=== PATIENT | male | born 1955 | race Hispanic/Latino ===

== ENCOUNTER 2016-12-28 21:51 | Inpatient (IN) | payer OTHER ==
[~2016-12-28] VITALS: Ht 170.2 cm; Wt 70.2 kg
[~2016-12-28 21:51] MED LIST: ASPI81TA3 PO; INSU3INS3 SUBQ; METF1000 PO; METO25TA6 PO; SIME80TA53 PO
[2016-12-28 22:01] VITALS: BP 142/89; PULSE 82; RESP 28; O2SAT 92
--- NOTE | 2016-12-28 22:09 | ED.REPORT ---
HPI-Dyspnea / Wheezing Date of Service Dec 28, 2016 ED Provider: Dr. Graves The pt is a 61 y/o male w/ a hx of IDDM, CHF, COPD, and mitral stenosis presenting to the ED c/o SOB onset 10 days ago, worsening today. He c/o associated belching, wet cough. He is also experiencing itching sensation in his throat which causes him to cough and have difficulty breathing. Records show recurrent admissions for CHF and mitral stenosis. His daughter states that he has been seen for similar symptoms exactly 1 year ago at [facility] at which time she reports a procedure which sounds similar to a cardiac catheterization but she cannot specify further. by history has had mitral stenosis and prior CHF admits. He denies orthopnea, chest pain, abdominal pain. He has a history of CHF but denies taking any diuretics. There has been no new medications. PCP: Dr. Hebert The pt and his daughter are poor historians, and non-maori speakers. Nursing Notes Chief Complaint: Respiratory Distress Nursing Notes Reviewed: Yes Allergies: Coded Allergies: No Known Allergies (Unverified , 12/28/16) Scheduled Aspirin Chew (Aspirin Chew) 81 Mg Tablet 81 MG PO DAILY Insuln Asp Prt/Insulin Aspart (NovoLOG 70/30 U100 Insulin Flexpen) 100 Unit/Ml Inj 8 UNIT SUBQ BIDAC Metformin (Glucophage) 1,000 Mg Tablet 1,000 MG PO BID Metoprolol Tartrate (Metoprolol Tartrate) 25 Mg Tablet 12.5 MG PO BID Simethicone (Gas-X) 80 Mg Tablet 80 MG PO DAILY General Time Seen by MD: 22:09 Chief Complaint Shortness of breath Hx Obtained From: Patient, Daughter, Social Worker Psychiatric Arrived By: Walk-in Sudden in Onset?: No Onset Occurred: More than a week ago... (10 days) Symptom Duration: Since onset Location: : None Severity: Current: No pain currently Severity: Maximum: No pain Recent Healthcare: No recent doctor visit Similar Sx Previous: Yes Past Medical History Past Medical History Mitral valve stenosis Reports: COPD, Congestive heart failure, Diabetes mellitus Reports: Depression Past Surgical History None Smoking History Former Smoker Social History Pt recently moved to the area from [place]. He lives with his son. 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 Alcohol Use: Denies alcohol use Drug Use: Denies drug use Other Social History: Good social support, Local resident Ambulatory Status Independent Review of Systems Review of Systems Note: Belching, itching in throat Respiratory: Reports: Prod cough, clear, Shortness of breath Cardiovascular: Denies: Chest pain, Orthopnea Complete sys rev & neg: except as marked. GI: Denies: Abdominal pain, Nausea, Vomiting Physical Exam Initial Vital Signs Vital Signs (First) Date Time Temp Pulse Resp B/P Pulse Ox O2 Delivery O2 Flow Rate FiO2 12/28/16 22:01 36.3 82 28 142/89 92 Room Air Initial VS: Reviewed, Vital signs abnormal Head / Eyes: Atraumatic, Normocephalic, PERRL Extremities: Vascular intact, Neuro intact, No swelling, No tenderness Skin: Warm, Dry, No cyanosis Neurologic: Alert, Oriented, Nonfocal Psychiatric: Mood/affect normal, Behavior normal, Normal thought content General/Constitutional: Awake, Alert, Cooperative, Not toxic appearing Neck: Atraumatic, Supple, No meningismus, Full range of motion, No swelling, Non-tender, No masses JVD present Respiratory / Chest: Atraumatic Wheezes and rales throughout Cardiovascular: Heart rate NL, Regular rhythm, Heart sounds NL, No gallop, No murmurs, No rubs, Peripheral circulation NL ENT: Airway patent, Mucous membranes moist Slight edema of tongue Mild edema of larynx Abdomen: Atraumatic, Soft, Non-tender, No guarding, No rebound Hepatojugular reflux present Interpretation & Diagnostics Lab Results Interpretation Result Diagram: 12/28/167 12/28/16 2217 Test 12/28/16 22:17 12/28/16 23:56 White Blood Count 6.5th/mm3 (3.8-10.1) Red Blood Count 4.01mil/mm3 (4.40-5.80) Hemoglobin 11.6g/dL (13.8-17.2) Hematocrit 35.6% (41.0-50.0) Mean Corpuscular Volume 88.8fL (81-100) Mean Corpuscular Hemoglobin 28.9pg (27.0-35.0) Mean Corpuscular Hemoglobin Concent 32.6% (32.0-37.0) Red Cell Distribution Width 14.1% (12.3-15.4) Platelet Count 287bil/L (150-400) Neutrophils (%) (Auto) 52.2% (40-74) Lymphocytes (%) (Auto) 35.2% (14-46) Monocytes (%) (Auto) 7.0% (4-12) Eosinophils (%) (Auto) 4.3% (0-5) Basophils (%) (Auto) 1.1% (0-3) Sodium Level 128mEq/L (134-144) Potassium Level 3.9mEq/L (3.5-5.2) Chloride Level 95mEq/L (97-108) Carbon Dioxide Level 25mmol/L (18-29) Blood Urea Nitrogen 18mg/dL (8-27) Creatinine 0.66mg/dL (0.76-1.27) Estimat Glomerular Filtration Rate 130mL/min (>59) Glucose Level 309mg/dL (60-99) Calcium Level 8.9mg/dL (8.5-10.1) Magnesium Level 1.9mg/dL (1.6-2.6) Total Bilirubin 0.4mg/dL (0.0-1.2) Aspartate Amino Transf (AST/SGOT) 14U/L (0-50) Alanine Aminotransferase (ALT/SGPT) 11U/L (0-44) Alkaline Phosphatase 95U/L (25-160) Troponin T 0.010ug/L (0.0-0.011) Pro-B-Type Natriuretic Peptide 455.9pg/mL (0-210) Total Protein 7.1g/dL (6.4-8.4) Albumin 4.2g/dL (3.4-5.0) Procalcitonin 0.03ng/mL (0.00-0.08) Hold Sánchez Top Tube Received (Received) Urine Color Yellow (YELLOW) Urine Appearance Clear (CLEAR,HAZY) Urine pH 6.0 (5.0-8.0) Urine Specific [place] 1.015 (1.003-1.035) Urine Protein Negativemg/dL (NEG,TRACE) Urine Glucose (UA) >1000mg/dL (NEGATIVE) Urine Ketones Negativemg/dL (NEGATIVE) Urine Occult Blood Negative (NEGATIVE) Urine Nitrite Negative (NEGATIVE) Urine Bilirubin Negative (NEGATIVE) Urine Urobilinogen Normalmg/dL (NORMAL) Urine Leukocyte Esterase Negative (NEGATIVE) Urine RBC 0-2/hpf (0-2) Urine WBC 0-5/hpf (0-5) Urine Epithelial Cells Occasional/hpf (NONE-MOD) Urine Crystals None seen (NONE SEEN) Urine Bacteria None/hpf (NONE-FEW) Urine Hyaline Casts None/lpf (NONE) Urine Granular Casts None seen (NONE SEEN) Urine Waxy Casts None seen (NONE SEEN) Urine Red Blood Cell Casts None seen (NONE SEEN) Urine White Blood Cell Casts None seen (NONE SEEN) Urine Mucus None seen (None Seen) Urine Trichomonas None seen (NONE SEEN) Urine Yeast None (NONE SEEN) Urinalysis Comment None Urine Culture Reflexed Not indicated ECG Interpretation ECG Interpretation: Sinus rhythm, Rate 76 Time: 22:30 Interpreted by: ED physician Normal ECG Interpretation: No acute ischemic changes, No change from prior ECGs X-Ray Chest Interpretation Chest Xray Interpretation: Cardiomegaly CHF View: Portable, 1 view Interpretation / Wet Read by: Interpret - Radiologist Re-Eval/Medical Decision Med Decision/Clinical Course 61 year old male with acute exacerbation of CHF. Not clear what precipitated, concerned for ischemic disease. Has had an invasive procedure 1 year ago, not clear if this was a cath with coronary intervention or some type of valvular procedure. Note he was in considerable distress or arrival and sats were low. Plan to admit. Code status discussed in presence of family- full code Re-Evaluation/Progress : Time of Eval: 23:04 Re-Evaluation/Progress Note: Pt rechecked. Code status discussed: Full code. Informed pt of need to admit. Pt understands and agrees with plan for treatment. All questions addressed. Consultation : Referral / Consult Name: Jamarcus Lynch MD Consulted With: Hospitalist Ward Aide: Accepts admit Counseled Regarding: Diagnosis, Lab results, Need for admission Discharge & Departure Impression: Primary Impression: Acute exacerbation of CHF (congestive heart failure) Congestive heart failure type: unspecified congestive heart failure type Qualified Code: I50.9 - Heart failure, unspecified Disposition: ADMITTED TO HOSPITAL Discharge Condition All VS Reviewed: Yes Condition: Stable Referrals: Tanika Hebert MD (PCP) Scribe Attestation Portions of this note were transcribed by Lai Garcia and Eleno Castillo. I, Dr. Graves, personally performed the history, physical exam and medical decision- making; I reviewed and confirmed the accuracy of the information in the transcribed note. Signed by Lai Garcia and Anais Green, 12/28/16 - 1030 copies to: Tanika Hebert MD, Donald L MD Dec 28, 2016 22:09 LAI GARCIA Dec 28, 2016 22:14 Eleno Castillo Dec 28, 2016 22:21
[2016-12-28 22:53] LABS: BASOPHILS % (AUTO) 1.1 % (0-3); EOSINOPHILS % (AUTO) 4.3 % (0-5); Mean Corpuscular Hemoglobin 28.9 pg (27.0-35.0); Mean Corpuscular Volume 88.8 fL (81-100); NEUTROPHILS % (AUTO) 52.2 % (40-74); Platelet Count 287 bil/L (150-400)
[2016-12-28] MEDS ORDERED: Furosemide 10 mg/mL 4 mL Inj IVPUSH ONE (23:00)
[2016-12-28 23:23] VITALS: BP 123/83; PULSE 71; RESP 24; O2SAT 98
[2016-12-28 23:37] LABS: Magnesium 1.9 mg/dL (1.6-2.6); TROPONIN T 0.01 ug/L (0.0-0.011)
[2016-12-29] VITALS (9 sets, daily range): BP systolic 100–116; BP diastolic 63–72; PULSE 52–80; RESP 16–20; O2SAT 91–99
[2016-12-29 00:05] LABS: APPEARANCE,URINE CLEAR (CLEAR,HAZY); COLOR,URINE YELLOW (YELLOW); OCCULT BLOOD,URINE NEGATIVE (NEGATIVE); UROBILINOGEN,URINE NORMAL (NORMAL)
[2016-12-29] MEDS ORDERED: Ondansetron 2 mg/mL 2 mL Inj IVPUSH PRN ×2 (00:25→01:25)
[2016-12-29] MEDS ORDERED: Alum-Mag Hydrox-Simeth 30 mL Suspension PO PRN ×2 (00:25→01:25)
--- NOTE | 2016-12-29 01:22 | NUR ---
Admit Note Pt arrived around 0100. Alert and oriented. Able to walk himself to bed. Using parts interpreter on stick for admit process. Pt feels well and not in pain.
[2016-12-29] MEDS ORDERED: Senna-Docusate 8.6-50 mg Tablet PO PRN (01:25)
[2016-12-29] MEDS ORDERED: Polyethylene Glycol (PEG) 17 Gm Powder PO PRN (01:25)
--- NOTE | 2016-12-29 01:45 | PCM.HPMED ---
Subjective Date of Service Dec 29, 2016 Primary Provider: Admitting Physician: Jamarcus Lynch MD Primary Care Physician: Tanika Hebert MD Attending Physician: Jamarcus Lynch MD Admit Status: From the Emergency Department Chief Complaint: Shortness of breath dyspnea, respiratory failure, eructations, productive phlegm , History of Present Illness: This is a pleasant 61 y/o M with Hx of CHF and history of previous hospitalization for CHF exacerbation, mitral stenosis, and Type 2 Diabetes Mellitus who presented [facility] ED and acute hypoxic respiratory failure requiring 4 L nasal cannula to maintain oxygen saturation initially. Patient was tachypneic with a respiratory rate of 28. Patient states that 10 days ago he began to experience what he describes as a gas sensation moving out from his abdomen into his chest and throat when he lays down. He describes these as eructations. He also describes a productive cough of brown sputum. He states when the gas moves from his abdomen into his throat causes her to itch and makes him cough. This is associated with metallic taste in his mouth, shortness of breath requiring him to lie on his side to sleep, paroxysmal nocturnal dyspnea, but denies orthopnea, fevers, vomiting, nausea, chest pain, chest pressure, chills, sweats, recent travel, sick contacts. Patient states that the last time he was admitted was for his heart. He denies that this episode is similar to his previous episode when he was here for CHF. He says this feels different. Patient describes lightheadedness when rapidly changing positions from lying to standing. He reports that one year ago he had a cardiac procedure done by Dr. Zavala at [facility] VS his daughters hx of being seen at [facility]. He says he had a wire was fed into his groin up into his chest secondary to some sort of obstruction, possible mitral valve pathology. Nursing reports that the [facility] has no record of patient and we are still awaiting information from [facility] regarding patients procedure. In the ED patient received medications: Lasix 40 mg IV once. At time of this interview patient appeared to be resting in bed comfortably in no respiratory distress on no oxygen and speaking in full sentences. EKG showed sinus rhythm with a rate of 76, right axis deviation, right bundle branch block, no changes from previous EKG. CXR showed: Normal cardiac silhouette, increased pulmonary vascular prominence bilaterally with cephalization. Appears consistent with CHF with what appears to be moderate diffuse interstitial disease. Vital signs: Temperature 36.3, pulse 82, respiratory rate 28, blood pressure 142 /89, pulse ox 92% on 4 L NC Repeat vitals: Temperature 36.6, pulse 66, respiratory rate 18, blood pressure 114/67, 83, 97% on 2 L NC Hemogram showed WBCs 6.5, 52.2% PMNs, hemoglobin 11.6, hematocrit 35.6, MCV 88.8 , MCH 28.9, MCHC 32.6, platelets 287. Chemistry panel, sodium 128, chloride 95, potassium 3.9, CO2 25, BUN 18, creatinine 0.66, glucose 309, troponin T 0.010, proBNP 455.9 Pro calcitonin 0.03 UA showed: Urine color yellow clear, pH 6.0, specific gravity 1.015, greater than 1000 glucose, negative occult blood, otherwise negative UA Review of Systems: A comprehensive review of systems was conducted and was negative except as mentioned in history of present illness. Allergies Coded Allergies: No Known Allergies (Unverified , 12/28/16) Home Medications Aspirin Chew (Aspirin Chew) 81 Mg Tablet 81 MG PO DAILY Insuln Asp Prt/Insulin Aspart (NovoLOG 70/30 U100 Insulin Flexpen) 100 Unit/Ml Inj 8 UNIT SUBQ BIDAC Metformin (Glucophage) 1,000 Mg Tablet 1,000 MG PO BID Metoprolol Tartrate (Metoprolol Tartrate) 25 Mg Tablet 12.5 MG PO BID Simethicone (Gas-X) 80 Mg Tablet 80 MG PO DAILY PMH Mitral valve stenosis COPD Congestive heart failure Diabetes mellitus Depression Surgical History History of a cardiac procedure possible catheter procedure 1 year ago at [facility] versus the [facility] by Dr. Zavala Family History Mother with history of liver cancer Social History Hx Alcohol Use: Yes (once per month) Hx Substance Use: No Hx Tobacco Use: Yes (previous every day smoker) Smoking Status: Former Smoker Living Arrangement: with Family (patient lives at home with his daughter Robert , his and his grandchildren) Exam Vital Signs Vital Sign - Last Date Time Temp Pulse Resp B/P Pulse Ox O2 Delivery O2 Flow Rate FiO2 12/29/16 01:19 36.6 66 18 114/67 97 Nasal Cannula 2.00 Exam General: Alert and oriented 3, appearing in no acute distress, resting comfortably in bed, Hungarian-speaking male speaking in full sentences. Jovial. Not appearing ill. HEENT: NC/AT, eyes, PERRLA, EOMI, neck, soft supple, no adenopathy, no JVD, no masses, no thyromegaly, throat mucous membranes pink and moist, no erythema, no exudates, no tonsillar swelling, no uvular deviation. Lungs: CTAB all lim from mild crackles in the bases bilaterally, no use of accessory muscles of respiration, good air movement, good respiratory effort. Heart: Regular rate and rhythm, did not detect a murmur although patient has echo that shows mitral regurg, no rub, no click, no distant heart sounds, Abdomen: Soft, nontender, slightly protuberant and tympanic on percussion, bowel sounds hyperactive, no rebound, no guarding, Genitourinary: No CVA tenderness, no suprapubic tenderness, no Fox catheter, Extremities: Pulses equal and symmetric upper/lower extremity including radial and dorsalis pedis, no edema, Neurologic: Patient is grossly neurologically intact, taking in full sentences, no focal neurological signs. Skin: Skin appears warm, and dry with skin tenting on the dorsal hands, patient does not appear to be wet or edematous Psychiatric: Mood is cheerful and mood and affect are congruent and appropriate. Lab and Diagnostics Result Diagram: 12/28/16221612/28/162216 Assessment & Plan This is a 61-year-old male with history type II diabetes, CHF, who presented to the ED with complaint of shortness of breath onset 10 days ago, belching, and wet cough productive dark brown sputum. Patient was found to be hyponatremic 128 and hyperglycemic at 308 Patient was admitted for acute exacerbation cessation of COPD and acute hypoxic respiratory failure. # Acute hypoxemic respiratory failure, secondary to acute exacerbation of CHF present on admission, active - Patient describes productive cough of brown colored sputum. For 10 days. - Likely secondary to CHF however differential diagnosis includes acute pneumonia, upper respiratory infection, - Vital signs: Temperature 36.3, pulse 82, respiratory rate 28, blood pressure 142/89, pulse ox 92% on 4 L NC - Patient currently is satting 97% on 2 L. - BNP 455.9 - Procalcitonin 0.03 - Continue supplemental oxygen as needed and slowly titrate off. - CXR: CXR showed: Normal cardiac silhouette, increased pulmonary vascular prominence bilaterally with cephalization. Appears consistent with CHF with what appears to be moderate diffuse interstitial disease. - Lasix 40 mg IV given in ED. - We will Will defer to morning hospitalist to continue IV Lasix, - Telemetry ordered - Previous echo dated 09/04/2015 showed normal left ventricular thickness, size , wall motion and function, LVEF 65-70%. Normal right ventricular size and function. 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 Severe left atrial enlargement with pulmonary hypertension. - Will order echo complete # Exacerbation of CHF, present on admission, active - Exam, lungs were clear bilaterally with only mild crackles in the lung bases. No distant heart sounds no murmurs, patient did not appear in respiratory distress. Patient did not appear wet. - BNP elevated as above - Patient was admitted to his [facility] in the past for CHF exacerbation, however patient states that this time seems different in that he has a sensation that gas is moving up from his belly into his throat when he lays down. Associated with metallic taste - She received IV Lasix 40 milligrams in the ED - We will Will defer to morning hospitalist to continue IV Lasix # Anemia, normochromic normocytic, present on admission, active - hemoglobin 11.6, hematocrit 35.6, MCV 88.8, MCH 28.9, MCHC 32.6, platelets 287. # Hypochloremic hyponatremia, present on admission, active - Sodium 128, chloride 95 - Likely multifactorial and secondary to acute on chronic hyperglycemia, volume overload secondary to CHF - We will fluid restrict to 1500 mL per day. - We will correct hyperglycemia - We will monitor with further BMPs # Hyperglycemia in a known type 2 diabetic, present on admission, active - BG 309 - Start low dose correction scale insulin - Hold home medication metformin - We will hold patient's insulin at NovoLog 70/30 U100 - Start basal insulin Lantus 5 units daily at bedtime # Glucosuria, present on admission, active - Patient was spilling greater than 1000 glucose on UA # Acid reflux and bloating, acute, present on admission, active - Consistent with patient's history of eructations and metallic taste in his mouth as well as gas and bloating for the past 10 days. When he lays down symptoms worsen. - Ranitidine - Simethicone Disposition: Admitted to in patient service with expected length of stay greater than 2 days, secondary to severity of presenting symptoms, treatment plan, complexity of clinical work up, and risk of adverse events. CODE STATUS: Full code PCP: Tanika Hebert DVT PE prophylaxis: SubQ heparin Q8H Contact: Robert Alvarez [phone] Patient lives with his daughter and grandchildren at home Pain Evaluation: Adequate Pain Control VTE Prophylaxis: Sub-Q Heparin (Unfractionated) Resuscitation Status: CPR: Attempt Resuscitation Attending Statement The patient was seen and examined together with Dr. Caldwell on 12/29 and I agree with the history, exam and plan as outlined in the note above. Venu Caldwell DO Dec 29, 2016 01:45 Jamarcus Lynch MD Dec 29, 2016 04:15
[2016-12-29 02:20] LABS: BASOPHILS % (AUTO) 0.4 % (0-3); EOSINOPHILS % (AUTO) 3.4 % (0-5); MONOCYTES % (AUTO) 6.5 % (4-12); Mean Corpuscular Hemoglobin 28.9 pg (27.0-35.0); Mean Corpuscular Volume 88.9 fL (81-100); NEUTROPHILS % (AUTO) 73.8 % (40-74); Platelet Count 270 bil/L (150-400)
[2016-12-29] MEDS ORDERED: Glucose 40% Oral Gel 15 Gm Tube PO PRN (04:00)
--- NOTE | 2016-12-29 06:35 | DRSVH ---
PROCEDURE: X-RAY CHEST ONE VIEW, PORTABLE ([id number]) INDICATIONS: dyspnea TECHNIQUE: One view of the chest was acquired. COMPARISON: [facility], CR, XR CHEST 1VW (PORTABLE), 11/06/2015, 19:49. FINDINGS: Surgical changes and devices: None. Lungs and pleura: There is mild interstitial prominence. No focal airspace opacities. Mediastinum: Mediastinal contours appear normal. Heart size is mildly enlarged. Bones and chest wall: No suspicious bony lesions. Overlying soft tissues appear unremarkable. IMPRESSION: Mild cardiomegaly and interstitial prominence suggesting fluid overload. Dictated by: Kinga Jean M.D. on 12/29/2016 at 6:33 Approved by: Kinga Jean M.D. on 12/29/2016 at 6:33
[2016-12-29] MEDS: Insulin LISPRO 300 Unit/3 mL Inj SUBQ SCH ×4 (08:00→21:24)
[2016-12-29] MEDS: Sodium Chloride LOK Flush 10 mL Syringe IVFLUSH SCH ×2 (08:47→17:25)
[2016-12-29] MEDS: Ranitidine 15 mg/mL 473 mL Syrup PO SCH ×3 (08:47→21:23)
[2016-12-29] MEDS: Heparin 5,000 Unit/mL Inj SUBQ SCH ×2 (08:48→21:25)
--- NOTE | 2016-12-29 10:30 | NUR ---
Social Work: Screening Data: Pt is a 61 y/o male admitted for acute exacerbation of CHF. Pt's PCP is Dr Hebert, pt's insurance is [employer]. EMR reviewed. Readmit score not listed. Pt is Italian speaking. [employer] will continue to follow for possible HH need. Assessment: Pt who is independent at baseline. Plan: Pt will d/c home via POV when medically stable, [employer] will continue to follow for possible HH need. YULIANA Ryan
[2016-12-29] MEDS: Furosemide 10 mg/mL 4 mL Inj IVPUSH SCH (11:00)
[2016-12-29] MEDS: MeTOProlol XL 25 mg ER24 Tablet PO SCH ×2 (11:29→20:30)
--- NOTE | 2016-12-29 18:18 | DRSVH ---
[facility] [address] [place] [address] Echocardiogram Report Name: KEHINDE ANDREWS Date: 12/29/2016 Height: 67 in Hospital Exam Location: [facility] Weight: 161 lb Gender: Male BSA: 1.8 m2 : 1955 Age: 61 yrs BP: 110/68 mmHg Reason For Study: HEART FAILURE Ordering Physician: Performed By: Minna Florentino Referring Physician: DR. Kaya ELLISON Interpretation Summary The left ventricle is normal in size, wall thickness, and systolic function without any focal wall motion abnormalities with the ejection fraction is estimated to be 65-70%. Diastolic function could not be accurately assessed due to confounding valvular disease. There has been no significant change since the previous study. The right ventricle is normal in size and function and appears unchanged compared to the previous study. There is severe pulmonary hypertension with the right ventricular systolic pressure now estimated at 81 mmHg assuming a right atrial pressure of 3 mm Hg and is higher compared to the previous study. Right atrial size is normal while the left atrium is severely dilated but there has been no significant change since the previous study. There is moderate mitral annular calcification and the mitral valve leaflets appear moderately thickened and severely calcified with an appearance consistent with rheumatic mitral stenosis. The mean mitral valve pressure gradient is 16 mmHg, up from 14 mmHg on the previous study with a mitral valve area now estimated at 0.7-0.8 cm2 compared to 1.1 cm2 on the previous study, consistent with severe mitral stenosis, likely slightly progressive compared to the previous study. There is at least moderate mitral regurgitation that appears more prominent compared to the previous study. The aortic valve is slightly calcified but opens well with moderate aortic regurgitation that is unchanged compared to the previous study. There is moderate tricuspid regurgitation that is more prominent compared to the previous study. The patient was in normal sinus rhythm between 55-70 bpm during the study. Procedure: A two-dimensional transthoracic echocardiogram with color flow and Doppler was performed. The study quality was technically adequate. Comparison is made with the echocardiogram of 08-22-2015. The patient was in normal sinus rhythm during the exam. The heart rate ranged between 55-70 bpm during the study. Left Ventricle: The left ventricle is normal in size, wall thickness, and systolic function without any focal wall motion abnormalities. The ejection fraction is estimated to be 65-70%. Spectral Doppler of the mitral valve shows a normal E/A wave ratio. Diastolic function could not be accurately assessed due to confounding valvular disease. There has been no significant change since the previous study. Right Ventricle: The right ventricle is normal in size and function. This is unchanged compared to the previous study. Atria: The left atrium is severely dilated. Right atrial size is normal. There has been no significant change since the previous study. There is no Doppler evidence for an atrial septal defect. Mitral Valve: There is moderate mitral annular calcification. The mitral valve leaflets are severely calcified. Rheumatic mitral stenosis. The mean mitral valve pressure gradient is 16 mmHg, up from 14 mmHg on the previous study with a mitral valve area now estimated at 0.7-0.8 cm2 compared to 1.1 cm2 on the previous study. There is severe mitral stenosis. This is likely slightly progressive compared to the previous study. There is moderate mitral regurgitation. This is more prominent compared to the previous study. Aortic Valve: The aortic valve is trileaflet. The aortic valve is slightly calcified. The aortic valve opens well. There is no aortic valve stenosis. There is moderate aortic regurgitation. This is unchanged compared to the previous study. Tricuspid Valve: The tricuspid valve leaflets are thin and pliable. There is moderate tricuspid regurgitation. This is more prominent compared to the previous study. There is severe pulmonary hypertension. The right ventricular systolic pressure is estimated at 81 mmHg assuming a right atrial pressure of 3 mm Hg. This is higher compared to the previous study. Pulmonic Valve: The pulmonic valve leaflets are thin and pliable; valve motion is normal. There is a trace or physiologic amount of pulmonic regurgitation. Great Vessels: The aortic root is normal size. The dimensions of the ascending aorta are normal. The pulmonary artery is normal size. The IVC is of normal diameter and collapses greater than 50% with a sniff. This suggests a low right atrial pressure of 3 mm Hg. Pericardium/ Pleura There is no pericardial effusion. There is no pleural effusion. MMode/2D Measurements & Calculations LVIDd: 4.8 cm LA dimension: 5.3 cm RA long axis LVOT diam: 2.2 cm LVIDs: 2.9 cm AoV Opening FS: 39.8 % LA A2 area: 36.4 cm RA area EPSS: 0.78 cm LA A4 area: 32.3 cm Ao root diam IVSd: 1.1 cm LA length (vol) : 18.5 cm LVPWd: 1.0 cm RA vol asc Aorta Diam LA vol: 154.4 ml : 50.4 ml LA vol index RA Ao Arch Diam (Prox : 27.3 mm/ Trans): 2.7 cm RVDd major IVC diam: 2.1 cm : 6.2 cm LV lares. diameter/BSA LV sys. diameter/BSA RVD2 (mid) (cm/m^2): 2.6 (cm/m^2): 1.6 : 3.5 cm Doppler Measurements & Calculations Ao V2 max: 172.0 cm/secMV E max rhett MV E/A: 1.4 TR max rhett Ao max P.8 mmHg : 283.9 cm/sec Med Peak E' Rhett : 442.1 cm/sec Ao mean P.7 mmHg MV A max rhett TR max PG LVOT Max Rhett : 199.1 cm/sec E/E' med: 60.7 : 78.2 mmHg : 114.3 cm/sec MVA(VTI): 0.72 cm2Lat Peak E' Rhett PA V2 max CONNIE(I,D): 2.8 cm : 91.9 cm/sec sev ratio: 0.75 E/E' lat: 57.8 PA mean PG AI P1/2t: 466.1 msec E/e' average AI dec slope PA Accel Time Pulm A Revs Dur : 0.08 sec : 278.0 cm/s2c MV V2 mean Ao V2 mean LV V1 max PG PA V2 mean : 194.3 cm/sec : 112.8 cm/sec : 64.7 cm/sec MV mean P.2 mmHg Ao V2 VTI: 38.2 cmLV V1 VTI MV V2 VTI: 147.6 cm CONNIE(V,D): 2.5 cm2 : 28.7 cm MV dec time: 0.85 sec CONNIE indexed to BSA (cm^2/m^2): 1.5 Reading Physician:06:17 PM
[2016-12-29] MEDS ORDERED: Insulin GLARgine 100 Unit/mL Syringe SUBQ SCH (21:00)
--- NOTE | 2016-12-29 22:19 | PCM.PNMED ---
Subjective Date of Service Dec 29, 2016 Subjective Patient states that he has little appetite. He has some left breathing difficulties today and is overall feeling better. Exam Vital Signs Vital Sign - Last Date Time Temp Pulse Resp B/P Pulse Ox O2 Delivery O2 Flow Rate FiO2 12/29/16 20:41 36.6 80 18 100/64 99 Room Air 12/29/16 09:37 2.00 Intake and Output 12/28/16 12/28/16 12/29/16 Cumulative From/Thru 15:00 23:00 07:00 12/28/16 22:01 - 12/29/16 06:39 Intake Total 200 ml 200 ml Output Total 900 ml 900 ml Balance -700 ml -700 ml Intake Oral 200 ml 200 ml Output Urine Total 900 ml 900 ml # Bowel Movements 0 0 Exam General: Patient is lying supine in bed in no apparent distress. HEENT: Head is atraumatic and normocephalic. Eyes: Pupils are equally round and reactive to light and accommodation. Extraocular muscles are intact. Sclera are white, anicteric. Subconjunctival mucosa is pink. Ears and nose are unremarkable. Oropharynx: There is no mucosal lesions, there is no thrush, there is no pharyngitis. Neck: Is supple, there are no nodes, or masses or tenderness. Chest: Is to admit him for some bibasilar crackles. There are no rhonchi wheezes or rubs at this time. Heart: Rate, rhythm is regular. There is no new murmur, rub or gallop. Abdomen: Good bowel sounds are present. Abdomen is soft, nontender, no organomegaly or masses were appreciated. Extremities: Are symmetrical and well perfused. There is no edema, there is no cellulitis, no rash. Neurologic: There are no focal neurological deficits. Cranial nerves II through XII are intact. There are no sensory or motor deficits. Psychiatric: Patients mood is calm and he shows no sign of agitation. Genital: Deferred Rectal: Deferred Lab and Diagnostics Result Diagram: 12/29/16 0200 12/29/16 0200 X-Rays, CTs and MRIs PROCEDURE: X-RAY CHEST ONE VIEW, PORTABLE ([id number]) INDICATIONS: dyspnea TECHNIQUE: One view of the chest was acquired. COMPARISON: [facility], CR, XR CHEST 1VW (PORTABLE), 11/06/2015, 19: 49. FINDINGS: Surgical changes and devices: None. Lungs and pleura: There is mild interstitial prominence. No focal airspace opacities. Mediastinum: Mediastinal contours appear normal. Heart size is mildly enlarged. Bones and chest wall: No suspicious bony lesions. Overlying soft tissues appear unremarkable. IMPRESSION: Mild cardiomegaly and interstitial prominence suggesting fluid overload. Dictated by: Kinga Jean M.D. on 12/29/2016 at 6:33 Approved by: Kinga Jean M.D. on 12/29/2016 at 6:33 Cardiac Echo Impressions Echocardiogram Report Name: KEHINDE ANDREWS AStudtracy Date: 12/29/2016 Height: 67 in Hospital Exam Location: [facility] Weight: 161 lb Gender: Male BSA: 1.8 m2 : 1955 Age: 61 yrs BP: 110/68 mmHg Reason For Study: HEART FAILURE Ordering Physician: Performed By: Minna Florentino Referring Physician: DR. Kaya HEBERT Interpretation Summary The left ventricle is normal in size, wall thickness, and systolic function without any focal wall motion abnormalities with the ejection fraction is estimated to be 65-70%. Diastolic function could not be accurately assessed due to confounding valvular disease. There has been no significant change since the previous study. The right ventricle is normal in size and function and appears unchanged compared to the previous study. There is severe pulmonary hypertension with the right ventricular systolic pressure now estimated at 81 mmHg assuming a right atrial pressure of 3 mm Hg and is higher compared to the previous study. Right atrial size is normal while the left atrium is severely dilated but there has been no significant change since the previous study. There is moderate mitral annular calcification and the mitral valve leaflets appear moderately thickened and severely calcified with an appearance consistent with rheumatic mitral stenosis. The mean mitral valve pressure gradient is 16 mmHg, up from 14 mmHg on the previous study with a mitral valve area now estimated at 0.7-0.8 cm2 compared to 1.1 cm2 on the previous study, consistent with severe mitral stenosis, likely slightly progressive compared to the previous study. There is at least moderate mitral regurgitation that appears more prominent compared to the previous study. The aortic valve is slightly calcified but opens well with moderate aortic regurgitation that is unchanged compared to the previous study. There is moderate tricuspid regurgitation that is more prominent compared to the previous study. The patient was in normal sinus rhythm between 55-70 bpm during the study. Assessment & Plan This is a 61-year-old male with history type II diabetes, CHF, who presented to the ED with complaint of shortness of breath onset 10 days ago, belching, and wet cough productive dark brown sputum. Patient was found to be hyponatremic 128 and hyperglycemic at 308 Patient was admitted for acute exacerbation cessation of COPD and acute hypoxic respiratory failure. # Acute hypoxemic respiratory failure, secondary to acute exacerbation of CHF present on admission, active - Patient describes productive cough of brown colored sputum. For 10 days. - Likely secondary to CHF however differential diagnosis includes acute pneumonia, upper respiratory infection, - Continue supplemental oxygen as needed and slowly titrate off. - CXR: CXR showed: Normal cardiac silhouette, increased pulmonary vascular prominence bilaterally with cephalization. Appears consistent with CHF with what appears to be moderate diffuse interstitial disease. - Lasix 40 mg IV given in ED. - We will attenuate IV Lasix daily - Telemetry ordered - Previous echo dated 09/04/2015 showed normal left ventricular thickness, size , wall motion and function, LVEF 65-70%. Normal right ventricular size and function. 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 Severe left atrial enlargement with pulmonary hypertension. - Repeat echocardiogram shows some progression of mitral valve disease. We will need to discuss with cardiology. # Exacerbation of CHF, present on admission, active - Exam, lungs were clear bilaterally with only mild crackles in the lung bases. No distant heart sounds no murmurs, patient did not appear in respiratory distress. Patient did not appear wet. - BNP elevated as above - Patient was admitted to his [facility] in the past for CHF exacerbation, however patient states that this time seems different in that he has a sensation that gas is moving up from his belly into his throat when he lays down. Associated with metallic taste - She received IV Lasix 40 milligrams in the ED - We will Will defer to morning hospitalist to continue IV Lasix # Anemia, normochromic normocytic, present on admission, active - We will continue to monitor # Hypochloremic hyponatremia, present on admission, active with no improvement - Sodium 128, chloride 95 - Likely multifactorial and secondary to acute on chronic hyperglycemia, volume overload secondary to CHF - We will fluid restrict to 1500 mL per day. - We will correct hyperglycemia - We will monitor with further BMPs # Hyperglycemia in a known type 2 diabetic, present on admission, active - BG 309 - Start low dose correction scale insulin - Hold home medication metformin - We will hold patient's insulin at NovoLog 70/30 U100 - Start basal insulin Lantus 5 units daily at bedtime # Glucosuria, present on admission, active - Patient was spilling greater than 1000 glucose on UA # Acid reflux and bloating, acute, present on admission, active - Consistent with patient's history of eructations and metallic taste in his mouth as well as gas and bloating for the past 10 days. When he lays down symptoms worsen. - Ranitidine - Simethicone Disposition: Admitted to in patient service with expected length of stay greater than 2 days, secondary to severity of presenting symptoms, treatment plan, complexity of clinical work up, and risk of adverse events. CODE STATUS: Full code PCP: Tanika Hebert DVT PE prophylaxis: SubQ heparin Q8H Contact: Robert Alvarez [phone] Patient lives with his daughter and grandchildren at home Pain Evaluation: Adequate Pain Control GI Prophylaxis: H2 carmelita VTE Prophylaxis: Sub-Q Heparin (Unfractionated) Resuscitation Status: CPR: Attempt Resuscitation [place] MD Dec 29, 2016 22:19 VTE Prophylaxis: Sub-Q Heparin (Unfractionated) Resuscitation Status: CPR: Attempt Resuscitation Vickey Dasilva MD Dec 29, 2016 22:19
[2016-12-30] MEDS: Sodium Chloride LOK Flush 10 mL Syringe IVFLUSH SCH ×2 (00:30→09:02)
[2016-12-30 04:33] VITALS: BP 112/63; PULSE 60; RESP 14; O2SAT 94
[2016-12-30] MEDS: Ranitidine 15 mg/mL 473 mL Syrup PO SCH ×2 (04:38→11:44)
[2016-12-30 06:02] VITALS: PULSE 60
[2016-12-30 07:13] LABS: BASOPHILS % (AUTO) 0.6 % (0-3); EOSINOPHILS % (AUTO) 5.2 % (0-5); MONOCYTES % (AUTO) 10.2 % (4-12); Mean Corpuscular Hemoglobin 29.3 pg (27.0-35.0); Mean Corpuscular Volume 88.1 fL (81-100); NEUTROPHILS % (AUTO) 57.3 % (40-74); Platelet Count 255 bil/L (150-400)
[2016-12-30 08:24] LABS: Magnesium 1.9 mg/dL (1.6-2.6); Phosphorus 3.7 mg/dL (2.5-4.9)
[2016-12-30] MEDS: Furosemide 10 mg/mL 4 mL Inj IVPUSH SCH (09:01)
[2016-12-30] MEDS: Heparin 5,000 Unit/mL Inj SUBQ SCH (09:01)
[2016-12-30] MEDS: MeTOProlol XL 25 mg ER24 Tablet PO SCH (09:01)
[2016-12-30] MEDS: Insulin LISPRO 300 Unit/3 mL Inj SUBQ SCH ×2 (09:02→11:45)
[2016-12-30 10:17] VITALS: BP 107/69; PULSE 68; RESP 18; O2SAT 96
[2016-12-30 10:48] VITALS: PULSE 66
--- NOTE | 2016-12-30 11:03 | NUR ---
Telemetry: Peaked T Wave Patient has been Sinus Rhythm 50-60s with no ectopy. Patient has a exceptionally peaked T wave that is taller than the R wave. LUIS Jo aware.
[2016-12-30] MEDS ORDERED: Heparin 5,000 Unit/mL Inj IVPUSH PRN (12:25)
[2016-12-30] MEDS ORDERED: Heparin 25K Unit/500mL 0.45 NS 25,000 UNIT in IV Premix 1 EACH IV SCH (12:25)
[2016-12-30 13:41] VITALS: BP_SYST 102; BP_SYST 103; BP_SYST 116; BP_DIAS 64; BP_DIAS 67; BP_DIAS 76; PULSE 70; RESP 16; O2SAT 99
--- NOTE | 2016-12-30 16:32 | NUR ---
Transferred to [facility] Patient transferred to [facility] via ALS with all belongings at 1621. Gave nurse report to LUIS Byrd [facility]. Vitals t-36.6, bp-116/76, p-70, rr-16, o2-99 RA. Patient transferred with heparin drip at 800 u/hr. Patient left floor via stretcher accompanied by ALS with no signs of distress.
--- NOTE | 2016-12-31 00:51 | PCM.DC.MED ---
Discharge Summary Date of Service Dec 30, 2016 Dates of Hospitalization Date of Hospital Admission Dec 29, 2016 at 00:32 Date of Discharge: Dec 30, 2016 Providers: Admitting Physician: Jamarcus Lynch MD Primary Care Physician: Tanika Hebert MD Attending Physician: Jamarcus Lynch MD Procedures XRay, CTs & MRIs PROCEDURE: X-RAY CHEST ONE VIEW, PORTABLE ([id number]) INDICATIONS: dyspnea TECHNIQUE: One view of the chest was acquired. COMPARISON: [facility], CR, XR CHEST 1VW (PORTABLE), 11/06/2015, 19: 49. FINDINGS: Surgical changes and devices: None. Lungs and pleura: There is mild interstitial prominence. No focal airspace opacities. Mediastinum: Mediastinal contours appear normal. Heart size is mildly enlarged. Bones and chest wall: No suspicious bony lesions. Overlying soft tissues appear unremarkable. IMPRESSION: Mild cardiomegaly and interstitial prominence suggesting fluid overload. Dictated by: Kinga Jean M.D. on 12/29/2016 at 6:33 Approved by: Kinga Jean M.D. on 12/29/2016 at 6:33 Cardiac Echo Impression Echocardiogram Report Name: KEHINDE ANDREWS Date: 12/29/2016 Height: 67 in Hospital Exam Location: [facility] Weight: 161 lb Gender: Male BSA: 1.8 m2 : 1955 Age: 61 yrs BP: 110/68 mmHg Reason For Study: HEART FAILURE Ordering Physician: Performed By: Minna Florentino Referring Physician: DR. Kaya HEBERT Interpretation Summary The left ventricle is normal in size, wall thickness, and systolic function without any focal wall motion abnormalities with the ejection fraction is estimated to be 65-70%. Diastolic function could not be accurately assessed due to confounding valvular disease. There has been no significant change since the previous study. The right ventricle is normal in size and function and appears unchanged compared to the previous study. There is severe pulmonary hypertension with the right ventricular systolic pressure now estimated at 81 mmHg assuming a right atrial pressure of 3 mm Hg and is higher compared to the previous study. Right atrial size is normal while the left atrium is severely dilated but there has been no significant change since the previous study. There is moderate mitral annular calcification and the mitral valve leaflets appear moderately thickened and severely calcified with an appearance consistent with rheumatic mitral stenosis. The mean mitral valve pressure gradient is 16 mmHg, up from 14 mmHg on the previous study with a mitral valve area now estimated at 0.7-0.8 cm2 compared to 1.1 cm2 on the previous study, consistent with severe mitral stenosis, likely slightly progressive compared to the previous study. There is at least moderate mitral regurgitation that appears more prominent compared to the previous study. The aortic valve is slightly calcified but opens well with moderate aortic regurgitation that is unchanged compared to the previous study. There is moderate tricuspid regurgitation that is more prominent compared to the previous study. The patient was in normal sinus rhythm between 55-70 bpm during the study. Brief History This is a pleasant 61 y/o M with Hx of CHF and history of previous hospitalization for CHF exacerbation, mitral stenosis, and Type 2 Diabetes Mellitus who presented [facility] ED and acute hypoxic respiratory failure requiring 4 L nasal cannula to maintain oxygen saturation initially. Patient was tachypneic with a respiratory rate of 28. Patient states that 10 days ago he began to experience what he describes as a gas sensation moving out from his abdomen into his chest and throat when he lays down. He describes these as eructations. He also describes a productive cough of brown sputum. He states when the gas moves from his abdomen into his throat causes her to itch and makes him cough. This is associated with metallic taste in his mouth, shortness of breath requiring him to lie on his side to sleep, paroxysmal nocturnal dyspnea, but denies orthopnea, fevers, vomiting, nausea, chest pain, chest pressure, chills, sweats, recent travel, sick contacts. Patient states that the last time he was admitted was for his heart. He denies that this episode is similar to his previous episode when he was here for CHF. He says this feels different. Patient describes lightheadedness when rapidly changing positions from lying to standing. He reports that one year ago he had a cardiac procedure done by Dr. Zavala at [facility] VS his daughters hx of being seen at [facility]. He says he had a wire was fed into his groin up into his chest secondary to some sort of obstruction, possible mitral valve pathology. Nursing reports that the [facility] has no record of patient and we are still awaiting information from [facility] regarding patients procedure. She was admitted to the hospital service for further evaluation and treatment. Hospital Course This is a 61-year-old male with history type II diabetes, CHF, who presented to the ED with complaint of shortness of breath onset 10 days ago, belching, and wet cough productive dark brown sputum. Patient was found to be hyponatremic 128 and hyperglycemic at 308 Patient was admitted for acute exacerbation cessation of COPD and acute hypoxic respiratory failure. She was admitted to the hospitalist service for further evaluation and treatment. # Acute hypoxemic respiratory failure, secondary to acute exacerbation of CHF present on admission, active - Patient describes productive cough of brown colored sputum. For 10 days. - Likely secondary to CHF however differential diagnosis includes acute pneumonia, upper respiratory infection, - Continue supplemental oxygen as needed and slowly titrate off. - CXR: CXR showed: Normal cardiac silhouette, increased pulmonary vascular prominence bilaterally with cephalization. Appears consistent with CHF with what appears to be moderate diffuse interstitial disease. - Lasix 40 mg IV given in ED. - We will attenuate IV Lasix daily - Telemetry ordered - Previous echo dated 09/04/2015 showed normal left ventricular thickness, size , wall motion and function, LVEF 65-70%. Normal right ventricular size and function. 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 Severe left atrial enlargement with pulmonary hypertension. - Repeat echocardiogram shows some progression of mitral valve disease. We will need to discuss with cardiology. I contacted Dr. Андрей Reina and Dr. John Marks and discuss the case with them. Dr. John Marks performed a valvuloplasty on this patient last year. Due to the worsening of findings on echocardiogram. Both cardiologists agreed the patient needed to be placed on a heparin drip and be transferred to their facility for further cardiovascular intervention in regards to the patient's mitral valve stenosis. Arrangements were made and patient was transferred to [facility]. # Exacerbation of CHF, present on admission, active. See above - Exam, lungs were clear bilaterally with only mild crackles in the lung bases. No distant heart sounds no murmurs, patient did not appear in respiratory distress. Patient did not appear wet. - BNP elevated as above - Patient was admitted to his [facility] in the past for CHF exacerbation, however patient states that this time seems different in that he has a sensation that gas is moving up from his belly into his throat when he lays down. Associated with metallic taste - She received IV Lasix 40 milligrams in the ED - We will Will defer to morning hospitalist to continue IV Lasix # Anemia, normochromic normocytic, present on admission, active - We will continue to monitor # Hypochloremic hyponatremia, present on admission, active with no improvement - Sodium 128, chloride 95 - Likely multifactorial and secondary to acute on chronic hyperglycemia, volume overload secondary to CHF - We will fluid restrict to 1500 mL per day. - We will correct hyperglycemia - We will monitor with further BMPs # Hyperglycemia in a known type 2 diabetic, present on admission, active - BG 309 - Start low dose correction scale insulin - Hold home medication metformin - We will hold patient's insulin at NovoLog 70/30 U100 - Start basal insulin Lantus 5 units daily at bedtime # Glucosuria, present on admission, active - Patient was spilling greater than 1000 glucose on UA # Acid reflux and bloating, acute, present on admission, active - Consistent with patient's history of eructations and metallic taste in his mouth as well as gas and bloating for the past 10 days. When he lays down symptoms worsen. - Ranitidine - Simethicone Disposition: Patient was transferred to [facility] for a more definitive procedure to treat his severe mitral stenosis. Excepting doctors were Dr. Андрей Reina and Dr. John Marks CODE STATUS: Full code PCP: Tanika Hebert DVT PE prophylaxis: SubQ heparin Q8H Contact: Robert Alvarez [phone] Patient lives with his daughter and grandchildren at home Exam Vital Signs (Last) Date Time Temp Pulse Resp B/P Pulse Ox O2 Delivery O2 Flow Rate FiO2 12/30/16 13:41 36.6 70 16 103/67 99 Room Air 102/64 116/76 12/29/16 09:37 2.00 Exam General: Patient is lying supine in bed in no apparent distress. HEENT: Head is atraumatic and normocephalic. Eyes: Pupils are equally round and reactive to light and accommodation. Extraocular muscles are intact. Sclera are white, anicteric. Subconjunctival mucosa is pink. Ears and nose are unremarkable. Oropharynx: There is no mucosal lesions, there is no thrush, there is no pharyngitis. Neck: Is supple, there are no nodes, or masses or tenderness. Chest: Is to admit him for some bibasilar crackles. There are no rhonchi wheezes or rubs at this time. Heart: Rate, rhythm is regular. There is no new murmur, rub or gallop. Abdomen: Good bowel sounds are present. Abdomen is soft, nontender, no organomegaly or masses were appreciated. Extremities: Are symmetrical and well perfused. There is no edema, there is no cellulitis, no rash. Neurologic: There are no focal neurological deficits. Cranial nerves II through XII are intact. There are no sensory or motor deficits. Psychiatric: Patients mood is calm and he shows no sign of agitation. Genital: Deferred Rectal: Deferred Test 12/28/16 22:17 12/28/16 23:56 12/29/16 02:00 12/30/16 01:20 Hold Sánchez Top Tube Received (Received) Urine Color Yellow (YELLOW) Urine Appearance Clear (CLEAR,HAZY) Urine pH 6.0 (5.0-8.0) Urine Specific [place] 1.015 (1.003-1.035) Urine Protein Negativemg/dL (NEG,TRACE) Urine Glucose (UA) >1000mg/dL (NEGATIVE) Urine Ketones Negativemg/dL (NEGATIVE) Urine Occult Blood Negative (NEGATIVE) Urine Nitrite Negative (NEGATIVE) Urine Bilirubin Negative (NEGATIVE) Urine Urobilinogen Normalmg/dL (NORMAL) Urine Leukocyte Esterase Negative (NEGATIVE) Urine RBC 0-2/hpf (0-2) Urine WBC 0-5/hpf (0-5) Urine Epithelial Cells Occasional/hpf (NONE-MOD) Urine Crystals None seen (NONE SEEN) Urine Bacteria None/hpf (NONE-FEW) Urine Hyaline Casts None/lpf (NONE) Urine Granular Casts None seen (NONE SEEN) Urine Waxy Casts None seen (NONE SEEN) Urine Red Blood Cell Casts None seen (NONE SEEN) Urine White Blood Cell Casts None seen (NONE SEEN) Urine Mucus None seen (None Seen) Urine Trichomonas None seen (NONE SEEN) Urine Yeast None (NONE SEEN) Urinalysis Comment None Urine Culture Reflexed Not indicated Band Neutrophils % 0% (1-5) Hemoglobin A1c 10.6% (4.8-5.6) Uric Acid 4.9mg/dL (2.6-7.2) Prealbumin 28mg/dL (20-40) Thyroid Stimulating Hormone (TSH) 14.410uIU/mL (0.450-4.500) Free Thyroxine 1.14ng/dL (0.82-1.77) Troponin T 0.010ug/L (0.0-0.011) Test 12/30/16 06:40 12/30/16 12:54 White Blood Count 3.6th/mm3 (3.8-10.1) Red Blood Count 4.03mil/mm3 (4.40-5.80) Hemoglobin 11.8g/dL (13.8-17.2) Hematocrit 35.5% (41.0-50.0) Mean Corpuscular Volume 88.1fL (81-100) Mean Corpuscular Hemoglobin 29.3pg (27.0-35.0) Mean Corpuscular Hemoglobin Concent 33.2% (32.0-37.0) Red Cell Distribution Width 13.9% (12.3-15.4) Platelet Count 255bil/L (150-400) Neutrophils (%) (Auto) 57.3% (40-74) Lymphocytes (%) (Auto) 26.4% (14-46) Monocytes (%) (Auto) 10.2% (4-12) Eosinophils (%) (Auto) 5.2% (0-5) Basophils (%) (Auto) 0.6% (0-3) Sodium Level 137mEq/L (134-144) Potassium Level 4.7mEq/L (3.5-5.2) Chloride Level 96mEq/L (97-108) Carbon Dioxide Level 28mmol/L (18-29) Blood Urea Nitrogen 13mg/dL (8-27) Creatinine 0.59mg/dL (0.76-1.27) Estimat Glomerular Filtration Rate 147mL/min (>59) Glucose Level 239mg/dL (60-99) Calcium Level 9.7mg/dL (8.5-10.1) Phosphorus Level 3.7mg/dL (2.5-4.9) Magnesium Level 1.9mg/dL (1.6-2.6) Total Bilirubin 0.6mg/dL (0.0-1.2) Aspartate Amino Transf (AST/SGOT) 12U/L (0-50) Alanine Aminotransferase (ALT/SGPT) 10U/L (0-44) Alkaline Phosphatase 76U/L (25-160) Pro-B-Type Natriuretic Peptide 278.7pg/mL (0-210) Total Protein 6.9g/dL (6.4-8.4) Albumin 4.2g/dL (3.4-5.0) Triglycerides Level 119mg/dL (0-149) Cholesterol Level 220mg/dL (100-199) LDL Cholesterol, Calculated 157.200mg/dL (0-99) VLDL Cholesterol 23.800mg/dL HDL Cholesterol 39mg/dL (>39) Cholesterol/HDL Ratio 5.64 (0.0-4.4) Procalcitonin 0.02ng/mL (0.00-0.08) Activated Partial Thromboplast Time 26.9sec (22.8-33.0) Discharge Medications Discharge Medications Aspirin Chew (Aspirin Chew) 81 Mg Tablet 81 MG PO DAILY Prescribed by: GERMANIA LOVETT DO Insuln Asp Prt/Insulin Aspart (NovoLOG 70/30 U100 Insulin Flexpen) 100 Unit/Ml Inj 8 UNIT SUBQ BIDAC Prescribed by: GERMANIA LOVETT DO Metformin (Glucophage) 1,000 Mg Tablet 1,000 MG PO BID (Reported) Metoprolol Tartrate (Metoprolol Tartrate) 25 Mg Tablet 12.5 MG PO BID Prescribed by: GERMANIA LOVETT DO Simethicone (Gas-X) 80 Mg Tablet 80 MG PO DAILY (Reported) Followup Plan Disposition: The patient is being transferred to [facility] for more definitive surgery on his mitral valve. Time spent Time spent on discharging this patient was greater than 35 minutes, over half of which was involved in counseling and coordination of care. Vickey Dasilva MD Dec 31, 2016 00:51
== END 2016-12-30 16:28 | disposition short-term general hospital (02) | DRG 291 ==
LOC: SED 21:51 → MPC 12-29 00:32
PROVIDERS: ADMIT Hospitalist; ATTEND Hospitalist
DX: I50.33 Acute on chronic diastolic (congestive) heart failure (principal); J96.01 Acute respiratory failure with hypoxia; E87.1 Hypo-osmolality and hyponatremia; Z87.891 Personal history of nicotine dependence; Z79.82 Long term (current) use of aspirin; Z79.84 Long term (current) use of oral hypoglycemic drugs; Z79.4 Long term (current) use of insulin; E87.8 Other disorders of electrolyte and fluid balance, not elsewhere classified; E11.65 Type 2 diabetes mellitus with hyperglycemia; K21.9 Gastro-esophageal reflux disease without esophagitis; I34.2 Nonrheumatic mitral (valve) stenosis